=== PATIENT | female | born 1965 | race Two or more races ===

== ENCOUNTER 2023-07-16 16:13 | Emergency (ER) | payer OTHER ==
[~2023-07-16] VITALS: Ht 160 cm; Wt 90.7 kg
[2023-07-16] MEDS ORDERED: NORVASC5 MG PO (16:34)
[2023-07-16] MEDS ORDERED: COZAAR100 MG PO (16:34)
[2023-07-16] MEDS ORDERED: NEURONTIN800 MG PO (16:35)
[2023-07-16] MEDS ORDERED: VAZALORE81 MG PO (16:35)
[2023-07-16] MEDS ORDERED: OMEPRAZOLE40 MG PO (16:35)
[2023-07-16] MEDS ORDERED: CELEXA40 MG PO (16:36)
[2023-07-16] MEDS ORDERED: TRILEPTAL300 MG PO (16:36)
[2023-07-16] MEDS ORDERED: CARAFATE1 GM PO (16:36)
[2023-07-16] MEDS ORDERED: RESTORIL30 M1 PO (16:37)
[2023-07-16 18:02] LABS: HEMATOCRIT 34.1 % (36.0-45.00); HEMOGLOBIN 11.5 g/dL (12.0-15.00); MEAN CELL VOLUME 90.1 fL (80.00-100.00); MEAN CORPUSCULAR HEMOGLOBIN 30.3 pg (27.00-32.0); MEAN CORPUSCULAR HGB CONC 33.6 g/dl (32.0-36.0); PLATELET COUNT 223 K/uL (150-450); RED BLOOD COUNT 3.79 M/uL (4.00-6.00); RED CELL DISTRIBUTION WIDTH 16.4 % (11.5-14.5)
[2023-07-16 18:22] LABS: ALBUMIN 3.5 gm/dL (3.4-5.0); BILIRUBIN TOTAL 0.27 mg/dL (0.3-1.2); CALCIUM 8.4 mg/dL (8.5-10.1); CREATININE SERUM 0.69 mg/dL (0.55-1.02); GFR 87.38; GLOBULINA 3.7 G/DL (2.4-3.5); POTASSIUM 3.78 mEq/L (3.5-5.1); TOTAL PROTEIN 7.2 gm/dL (6.4-8.2)
[2023-07-16 18:29] LABS: PH,URINE 6.5 (5.0-8.0); URINE APPEARANCE Clear; URINE BILIRRUBIN Negative (NEGATIVE); URINE BLOOD Negative; URINE COLOR Yellow; URINE GLUCOSE Negative (NEGATIVE); URINE LEUKOCYTE Small; URINE NITRATE Negative; URINE PROTEIN Negative (NEGATIVE)
[2023-07-16 18:33] LABS: URINE BACTERIA 217.8 uL (0.0-1933); URINE EPITHELIAL CELLS 52.9 uL (0.0-38.8); URINE RBC 5.7 uL (0.0-20.8); URINE WBC 42.6 uL (0.0-23.2)
== END 2023-07-16 22:15 | disposition home or self-care (01) ==
LOC: ER 16:13
PROVIDERS: General Practice
DX: A08.39 Other viral enteritis (principal); I10 Essential (primary) hypertension; Z20.822 Contact with and (suspected) exposure to COVID-19
CPT/HCPCS: 36415; 74177; 96365; 96366; 96372; 99284; J2250; J2405; J3490; Q9965